=== PATIENT | male | born 1970 | race Caucasian/White ===

== ENCOUNTER 2020-12-11 20:25 | Inpatient (IN) | payer BC, MEDICARE, OTHER ==
[~2020-12-11] VITALS: Ht 185.4 cm; Wt 98.1 kg
[~2020-12-11 20:25] MED LIST: ASPIRIN EC81 MG PO; ATORVASTATIN CA20 MG PO; CLOPIDOGREL75 MG PO; FENOFIBRATE145 MG PO; IMDUR ER TAB 3030 MG PO; LOPRESSOR 25 MG25 MG PO; NITROGLYCERIN0.4 MG SL; ZETIA 10 MG TAB10 MG PO
[2020-12-11 20:45] LABS: RED BLOOD COUNT 4.83 M/UL (4.20-5.50); WHITE BLOOD COUNT 9.3 K/UL (4.5-11.0)
[2020-12-11 21:02] LABS: BUN/CREATININE RATIO 8 (0-10)
== END 2020-12-12 21:15 | disposition short-term general hospital (02) | DRG 281 ==
LOC: ER1 20:25 → CDU 22:46 → PROG CARE 22:46
PROVIDERS: Family Medicine; ADMIT Internal Medicine
PROC: B2121ZZ Fluoroscopy of Single Coronary Artery Bypass Graft using Low Osmolar Contrast (ICD-10-PCS; principal; 2020-12-12)
PROC: B2111ZZ Fluoroscopy of Multiple Coronary Arteries using Low Osmolar Contrast (ICD-10-PCS; 2020-12-12)
DX: I21.4 Non-ST elevation (NSTEMI) myocardial infarction (principal); I25.810 Atherosclerosis of coronary artery bypass graft(s) without angina pectoris; I10 Essential (primary) hypertension; E78.5 Hyperlipidemia, unspecified; Z20.822 Contact with and (suspected) exposure to COVID-19; Z72.0 Tobacco use; Z95.1 Presence of aortocoronary bypass graft; Z91.14 Patient's other noncompliance with medication regimen; Z82.49 Family history of ischemic heart disease and other diseases of the circulatory system
CPT/HCPCS: ECHO; 36415; 71045; 80053; 82550; 82553; 83874; 84484; 85025; 85610; 85730; 93005; 93306; 96374; 99152; 99153; 99285; C1769; G0378; J1644; J2250; J3010; J7030; J7040; Q9967; U0002